=== PATIENT | female | born 1980 | race American Indian/Alaskan Native ===

== ENCOUNTER 2021-12-22 11:58 | Emergency (ER) | payer SELFPAY ==
[2021-12-22 12:52] VITALS: BP 125/67
--- NOTE | 2021-12-22 13:23 | Emergency Department Report ---
ED Chest Pain HPI - General Chief Complaint: Chest Pain Stated Complaint: SOB/CHEST AND SHOULDER PAIN PUI?: No Time Seen by Provider: 12/22/21 13:21 Source: patient Mode of arrival: Ambulatory Limitations: No Limitations - History of Present Illness Initial Comments: 41 yo comes to ER for cp and sob for days. She could not see PCP. No fever or chills. No n/v/d. Ambulatory and non ill appearing on arrival to ER. MD Complaint: chest pain -: Gradual, days(s) Pain Location: right chest Severity: mild Severity scale (0 -10): 6 Quality: sharp Consistency: intermittent Improves With: nothing Worsens With: nothing re: denies: nausea, vomting, diaphoresis, dyspnea, sense of impending doom Other Symptoms: denies: cough, fever, syncope, rash, acid taste in mouth, palpitations, burping Treatments Prior to Arrival: none Aspirin use within the Past 7 Days: (0) No - Related Data On Oral Contraceptives: No Allergies Allergy/AdvReac Type Severity Reaction Status Date / Time No Known Allergies Allergy Unverified 12/22/21 12:52 Heart Score - HEART Score History: Slightly suspicious EKG: Normal Age: < 45 Risk factors: No known risk factors Troponin: < normal limit HEART Score: 0 - EKG Read Time Time EKG Completed: 12:51 EKG Read Time: 12:54 - Critical Actions Critical Actions: 0-3 pts:0.9-1.7%risk of adverse cardiac event.Candidate for discharge ED Review of Systems ROS: Stated complaint: SOB/CHEST AND SHOULDER PAIN Other details as noted in HPI Comment: All other systems reviewed and negative ED Past Medical Hx - Past Medical History Previous Medical History?: Yes Hx Asthma: Yes Additional medical history: anemia - Surgical History Past Surgical History?: Yes Additional Surgical History: [facility] 2019 - Family History Family history: no significant - Social History Smoking Status: Current Every Day Smoker Substance Use Type: None ED Physical Exam - General Limitations: No Limitations General appearance: alert, in no apparent distress - Head Head exam: Present: atraumatic, normocephalic - Eye Eye exam: Present: normal appearance - ENT ENT exam: Present: mucous membranes moist - Neck Neck exam: Present: normal inspection - Respiratory Respiratory exam: Present: normal lung sounds bilaterally. Absent: respiratory distress - Cardiovascular Cardiovascular Exam: Present: regular rate, normal rhythm. Absent: systolic murmur, diastolic murmur, rubs, gallop - GI/Abdominal GI/Abdominal exam: Present: soft, normal bowel sounds - Extremities Exam Extremities exam: Present: normal inspection - Back Exam Back exam: Present: normal inspection - Neurological Exam Neurological exam: Present: alert, oriented X3 - Psychiatric Psychiatric exam: Present: normal affect, normal mood - Skin Skin exam: Present: warm, dry, intact, normal color. Absent: rash ED Course Vital Signs 12/22/21 12:50 Temperature 98.9 F Pulse Rate 76 Respiratory 18 Rate Blood Pressure 125/67 [Left] O2 Sat by Pulse 100 Oximetry NURIS score - Nuris Score Age > 65: (0) No Aspirin use within the Past 7 Days: (0) No 3 or more CAD Risk Factors: (0) No 2 or more Angina events in past 24 hrs: (0) No Known CAD with more than 50% Stenosis: (0) No Elevated Cardiac Markers: (0) No ST Deviation Greater than 0.5mm: (0) No NURIS Score: 0 ED Medical Decision Making - Lab Data Result diagrams: 12/22/21 12:21 12/22/21 13:25 - EKG Data -: EKG Interpreted by Hi EKG shows normal: sinus rhythm Rate: normal - EKG Data When compared to previous EKG there are: no significant change Interpretation: no acute changes - Radiology Data Radiology results: report reviewed, image reviewed nap - Medical Decision Making Labs 12/22/21 12/22/21 12:21 13:25 WBC 4.4 L RBC 4.54 Hgb 12.7 Hct 39.8 MCV 88 MCH 28 MCHC 32 RDW 14.8 Plt Count 308 Baso % (Auto) Nurse Consultant Sodium 139 Potassium 4.6 Chloride 103.5 Carbon Dioxide 25 Anion Gap 15 BUN 13 Creatinine 0.7 Estimated GFR > 60 BUN/Creatinine Ratio 19 Glucose 86 Calcium 9.6 Total Bilirubin 0.40 AST 18 ALT 8 Alkaline Phosphatase 73 Troponin T < 0.010 Total Protein 9.0 H Albumin 5.3 H Albumin/Globulin Ratio 1.4 Lipase 14 Vital Signs 12/22/21 12:50 Temperature 98.9 F Pulse Rate 76 Respiratory 18 Rate Blood Pressure 125/67 [Left] O2 Sat by Pulse 100 Oximetry 12 lead nap no RV strain no tachycardia or hypotension xray chest nap labs noted WBC normal trop normal exam unremarkalbe normal vs pt is sharp and intermittent. Worse with movement. Pt educated on findings of work.. Pt dc home with dc plan of care including diet, meds, activity and follow up. She verbalizes understanding. - Differential Diagnosis ro uri/acs/musculoskeletal pain Critical care attestation.: If time is entered above; I have spent that time in minutes in the direct care of this critically ill patient, excluding procedure time. ED Disposition Clinical Impression: Atypical chest pain Disposition: 01 HOME / SELF CARE / HOMELESS Is pt being admited?: No Does the pt Need Aspirin: No Condition: Stable Instructions: Nonspecific Chest Pain, Adult Additional Instructions: xray -- labs--- ekg all normal over the counter motrin or tylenol for pain follow up with pcp referral below Referrals: ENRICO PATEL MD [Primary Care Provider] - 3-5 Days Forms: Work/School Release Form(ED) Time of Disposition: 15:17
[2021-12-22 14:14] LABS: Hematocrit 39.8 % (30.3-42.9); Hemoglobin 12.7 gm/dl (10.1-14.3); Mean Corpuscular HGB Conc 32 % (30-34); Mean Corpuscular Volume 88 fl (79-97); Platelet Count 308 K/mm3 (140-440); Red Blood Count 4.54 M/mm3 (3.65-5.03); Red Cell Distribution Width 14.8 % (13.2-15.2)
[2021-12-22 14:15] LABS: Alanine Aminotransferase 8 units/L (7-56); Albumin 5.3 g/dL (3.9-5); Blood Urea Nitrogen 13 mg/dL (7-17); Calcium 9.6 mg/dL (8.4-10.2); Hemolysis Index 20
--- NOTE | 2021-12-22 14:20 | XRay Report ---
CHEST 2 VIEWS INDICATION / CLINICAL INFORMATION: Chest pain for one day. COMPARISON: None available. FINDINGS: SUPPORT DEVICES: None. HEART / MEDIASTINUM: The heart size and pulmonary vasculature are normal. The aorta is normal in [place]. LUNGS / PLEURA: No significant pulmonary or pleural abnormality. No pneumothorax. ADDITIONAL FINDINGS: No significant additional findings. IMPRESSION: No acute findings. Signer Name: Joe Banegas MD Signed: 12/22/2021 2:15 PM Workstation Name: [id number]
[2021-12-22 14:37] LABS: BUN/Creatinine Ratio 19
[2021-12-22 15:20] LABS: Basophils % (Manual) 0 % (0.0-1.8); Eosinophils % (Manual) 0 % (0.0-4.3); Total Cells Counted 100
[2021-12-22 15:22] LABS: Anisocytosis Few; Hypochromasia 1+; Ovalocytes Rare; Platelet Estimate Consistent w Auto; Poikilocytosis Few
--- NOTE | 2021-12-23 10:07 | Electrocardiograph Report ---
[facility] Test Date: 2021-12-22 Test Time: 12:54:57 Pat Name: NAFISA ROBLES Department: Room: Gender: F Director Of Casework Department: [facility] : 1980 Requested By: CINDY SANDOVAL Order Number: [id number] Reading MD: Henrik Khan Measurements Intervals [place] Rate: 82 P: 48 TX: 140 QRS: 37 QRSD: 76 T: 5 QT: 400 QTc: 468 Interpretive Statements Sinus rhythm No previous ECG available for comparison Electronically Signed On 12-23-2021 10:07:02 EDT by Henrik Khan
== END 2021-12-22 16:15 | disposition home or self-care (01) ==
LOC: ED 11:58
DX: R07.89 Other chest pain (principal); J45.909 Unspecified asthma, uncomplicated; F17.200 Nicotine dependence, unspecified, uncomplicated; Z79.899 Other long term (current) drug therapy
CPT/HCPCS: 36415; 71046; 80053; 83690; 84484; 85007; 85025; 93005; 99283